=== PATIENT | female | born 1965 | race Caucasian/White ===

== ENCOUNTER 2016-07-24 14:38 | Emergency (ER) | payer BC, OTHER ==
--- NOTE | ~2016-07-24 | CR72 ---
[facility] A Service of [facility] & [facility] RADIOLOGY TEXT RESULTS PATIENT: FLAQUITO WHITE LOCATION: [facility] : [birth year] UNIT #: [id number] AGE: [address]: Zoë Albrecht MD SEX: F ORDER DR: [id number] [facility] [address] [place], [place] [address] [id number] E MR#: [id number] Acc #: [id number] NAME: FLAQUITO WHITE : 1965 SEX: F STUDY DATE/TIME: 07/24/2016 14:40 UNIT: [facility] ROOM: STUDY DESCRIPTION: CR Chest Single View Portable Attending Physician: Zoë Albrecht M.D. Ordering Physician: Zoë Albrecht M.D. Primary Care Physician: [facility], [facility]. MEDICAL IMAGING REPORT This report is preliminary unless electronic signature is present EXAM Portable chest. HISTORY Chest pain, headache and nausea for the past 3 days. TECHNIQUE Single view of the chest was obtained and compared 07/11/2015. FINDINGS A single AP portable view of the chest shows both lungs to be clear. The heart is normal in size. The mediastinal contour is normal. No significant bone abnormalities are seen. IMPRESSION Normal portable chest. Dictated by... Camron Cunha M.D. THIS IS AN ELECTRONICALLY VERIFIED REPORT Camron Cunha M.D. at 07/28/2016 4:31 PM JESUS/yaima TD: 07/24/2016 18:00 JOB #: [id number] MEDICAL IMAGING REPORT COPY
--- NOTE | ~2016-07-24 | CT71 ---
[facility] A Service of [facility] RADIOLOGY TEXT RESULTS PATIENT: FLAQUITO WHITE LOCATION: [facility] : 69 UNIT #: [id number] AGE: [address]: Zoë Albrecht MD SEX: F ORDER DR: [id number] [facility] [address] [place], [place] [address] [id number] E MR#: [id number] Acc #: [id number] NAME: FLAQUITO WHITE : 1965 SEX: F STUDY DATE/TIME: 07/24/2016 15:43 UNIT: [facility] ROOM: STUDY DESCRIPTION: CT Head Wo Contrast Attending Physician: Zoë Albrecht M.D. Ordering Physician: Zoë Albrecht M.D. Primary Care Physician: [facility], [facility]. MEDICAL IMAGING REPORT This report is preliminary unless electronic signature is present EXAM CT brain without contrast media. DATE OF EXAM 07/24/2016 HISTORY Headache for 1 week, nausea for 3 days, history of diabetes and hypertension. TECHNIQUE Transaxial imaging of the brain was performed without contrast media. Bone and soft tissue windows are reviewed. NOTE: This CT exam was performed with one or more of the following radiation dose reduction techniques: automatic exposure control, adjustment of mA and/or kV according to patient size, and iterative reconstruction. FINDINGS Intracranially the ventricles and CSF-containing spaces are normal in size and configuration. No intra or extraaxial mass lesions, fluid collections or mass effect are seen. No focal areas of low attenuation or evidence of intracranial hemorrhage. Bone windows are reviewed. Paranasal sinuses and mastoid air cells are clear. CONCLUSION Normal noncontrast CT of the brain. Dictated by... Candelario Belle M.D. THIS IS AN ELECTRONICALLY VERIFIED REPORT Candelario Belle M.D. at 07/27/2016 5:07 PM [facility] A Service of [facility] & [facility] RADIOLOGY TEXT RESULTS PATIENT: FLAQUITO WHITE LOCATION: [facility] : [birth year] UNIT #: [id number] AGE: [address]: Zoë Albrecht MD SEX: F ORDER DR: ILSA/harika TD: 07/24/2016 19:30 JOB #: [id number] MEDICAL IMAGING REPORT COPY
--- NOTE | ~2016-07-24 | EKG ---
PATIENT: FLAQUITO WHITE UNIT #: [id number] Ventricular Rate: 78 BPM Atrial Rate: 78 BPM P-R Interval: 162 ms QRS Duration: 74 ms Q-T Interval: 382 ms QTC Calculation(Bezet): 435 ms P [place]: 28 degrees Calculated R [place]: -12 degrees Calculated T [place]: 5 degrees Diagnosis Line: Normal sinus rhythm Diagnosis Line: Normal ECG Diagnosis Line: When compared with ECG of 11-JUL-2015 06:15, Diagnosis Line: No significant change was found Diagnosis Line: Confirmed by SAURABH BOYER MD ([id number]) on 07/24/2016 Diagnosis Line: 5:31:25 PM INTERPRETING MD: ROSALIND LIMA
[2016-07-24 13:46] LABS: BASOPHIL% 0.7 % (0-2.5); EOSINOPHIL# 0.1 X10e3 (0-0.7); EOSINOPHIL% 1.5 % (0.0-7.0); HEMATOCRIT 40.8 % (35.0-45.0); HEMOGLOBIN 13.9 gm/dL (12.0-16.0); LYMPHOCYTE# 2.2 X10e3 (1.0-3.5); LYMPHOCYTE% 33.2 % (17.0-45.0); MEAN CELL VOLUME 95.8 FL (83-96); MEAN CORPUSCULAR HEMOGLOBIN 32.6 PG (28-34); MEAN PLATELET VOLUME 7.4 FL (6.5-11.5); MONOCYTE# 0.3 X10e3 (0-1.0); MONOCYTE% 4.7 % (3.0-12.0); NEUTROPHIL% 59.9 % (40-75); PLATELET COUNT 223 X10e3 (140-420); RED BLOOD COUNT 4.26 X10e (3.90-5.30); RED CELL DISTRIBUTION WIDTH 13.4 % (11.0-15.5); WHITE BLOOD COUNT 6.6 X10e3 (4.0-10.5)
[2016-07-24 13:50] LABS: DIFF IND NO
[2016-07-24 14:32] LABS: ALBUMIN SERUM 4.3 g/dL (3.5-5.0); ALKALINE PHOSPHATASE 79 U/L (32-92); ALT (SGPT) 41 U/L (10-40); AST (SGOT) 47 U/L (10-42); BILIRUBIN, DIRECT 0.1 mg/dL (0.0-0.2); BILIRUBIN,INDIRECT 0.5 mg/dL (0.0-0.9); BILIRUBIN,TOTAL 0.6 mg/dL (0.2-2.0); BLOOD UREA NITROGEN 14 mg/dL (9-23); CARBON DIOXIDE 24 mmol/L (22-31); CHLORIDE 104 mmol/L (100-111); CREATININE SERUM 0.4 mg/dL (0.6-1.4); GLOM FILT RATE Estimated ABOVE60 mL/min (>60); GLUCOSE FASTING 146 mg/dL (70-110); POTASSIUM 3.9 mmol/L (3.5-5.1); PROTEIN TOTAL SERUM 7.4 g/dL (6.0-8.3); SODIUM 138 mmol/L (135-145)
[~2016-07-24 14:38] MED LIST: AMARYL2 MG PO; FENOFIBRATE160 MG PO; GABAPENTIN600 MG PO; LOSARTAN-HCTZ1 EAC1 PO; METFORMIN HCL500 M2 PO; OMEPRAZOLE20 M2 PO; PRAVASTATIN SOD40 MG PO; VICTOZA0.6 MG/0.1; ZOLOFT PO
[2016-07-24 14:42] LABS: POC - CKMB <1.0 ng/mL (0.0-7.9); POC - TROPONIN <0.05 ng/mL (<=0.05)
[2016-07-24 15:29] LABS: POC - CKMB <1.0 ng/mL (0.0-7.9); POC - TROPONIN <0.05 ng/mL (<=0.05)
[2016-07-24] MEDS ORDERED: BD INSULIN MC (16:04)
[2016-07-24] MEDS ORDERED: DAYPRO600 M1 PO (16:05)
[2016-07-24] MEDS ORDERED: ZYRTEC10 M2 PO (16:05)
[2016-07-24] MEDS ORDERED: CRESTOR PO (16:05)
[2016-07-24] MEDS ORDERED: HUMALOG KW200 UNIT/1 SUBQ (16:06)
[2016-07-24] MEDS ORDERED: LOSARTAN-HCTZ1 EAC1 PO (16:07)
[2016-07-24] MEDS ORDERED: LANTUS100 U/ML SUBQ (16:07)
[2016-07-24] MEDS ORDERED: SERTRALINE HCL100 M1 PO (16:08)
[2016-07-24] MEDS ORDERED: GLUCOPHAGE500 M1 PO (16:08)
[2016-07-24] MEDS ORDERED: PANTOPRAZOLE SO40 MG PO (16:08)
== END 2016-07-24 17:08 | disposition home or self-care (01) ==
LOC: CED 14:38
PROVIDERS: Emergency Medicine; Student in an Organized Health Care Education/Training Program
DX: M79.602 Pain in left arm (principal); R51 Headache; E11.9 Type 2 diabetes mellitus without complications; I10 Essential (primary) hypertension; K21.9 Gastro-esophageal reflux disease without esophagitis; F17.200 Nicotine dependence, unspecified, uncomplicated; Z88.0 Allergy status to penicillin; Z88.8 Allergy status to other drugs, medicaments and biological substances; Z79.899 Other long term (current) drug therapy; Z79.4 Long term (current) use of insulin
CPT/HCPCS: 36415; 70450; 71010; 80048; 80076; 82553; 84484; 85025; 93005; 99284